=== PATIENT | male | born 1950 | race Caucasian/White ===

== ENCOUNTER → 2018-06-01 11:54 | Outpatient (CLI) | payer MEDICARE, OTHER, SELFPAY ==
--- NOTE | 2018-06-01 | DI.US.S_ITS ---
PROCEDURE: US THYROID INDICATIONS: NEOPLASM OF UNCERTAIN BEHAVIOR OF THYROID GLAND TECHNIQUE: Real-time scanning was performed of the thyroid gland, with image documentation. COMPARISON: None. FINDINGS: Right: The right thyroid lobe measures 2.0 x 2.0 x 4.7 cm and contains 2 small nodules, near the origin of the Isthmus. The larger of the 2 measures 1.0 x 1.4 x 1.6 cm and the smaller of the 2 measures 1.0 x 0.6 x 0.7 cm each of these is predominantly solid and isoechoic to the thyroid smoothly marginated and contains no internal calcifications. Left: The left thyroid lobe measures 1.2 x 1.4 x 3.9 cm and contains a small 5 x 6 x 7 mm nodule is predominantly cystic and smoothly marginated. Isthmus: 2 mm. IMPRESSION: 3 hypoechoic structures are seen to involving the mid right thyroid near the origin of the Isthmus and the third is on the left. The third appears to represent a cyst and the 2 on the right represents simple appearing nodules. Dictated by: Maco Burger M.D. on 06/01/2018 at 13:58 Approved by: Maco Burger M.D. on 06/01/2018 at 14:00
== END ==
PROVIDERS: PCP Family Medicine; Visit Provider Otolaryngology
DX: D44.0 Neoplasm of uncertain behavior of thyroid gland (principal)
CPT/HCPCS: 76536

== ENCOUNTER → 2021-01-23 08:00 | Outpatient (CLI) | payer MEDICARE, OTHER, SELFPAY ==
[2021-01-23 19:35] LABS: Cholesterol 207 mg/dL (140-199); HDL Cholesterol 43 mg/dL (40-60); LDL Cholesterol Calculated 127 mg/dL (<100); Triglycerides 185 mg/dL (35-150)
[2021-01-23 20:19] LABS: Prostate Specific Antigen < 0.064 ng/mL (0.10-4.00)
== END ==
PROVIDERS: PCP Family Medicine; Visit Provider Family Medicine
DX: Z85.46 Personal history of malignant neoplasm of prostate (principal); E78.00 Pure hypercholesterolemia, unspecified
CPT/HCPCS: 80061; 84153

== ENCOUNTER → 2021-09-20 09:18 | Outpatient (CLI) | payer MEDICARE, OTHER, SELFPAY ==
[2021-09-20 20:34] LABS: Cholesterol 176 mg/dL (140-199); HDL Cholesterol 38 mg/dL (40-60); LDL Cholesterol Calculated 113 mg/dL (<100); Triglycerides 127 mg/dL (35-150)
== END ==
PROVIDERS: PCP Family Medicine; Visit Provider Family Medicine
DX: E78.00 Pure hypercholesterolemia, unspecified (principal)
CPT/HCPCS: 80061

== ENCOUNTER 2021-12-29 03:42 | Emergency (ER) | payer MEDICARE, OTHER, SELFPAY ==
[2021-12-29] VITALS (18 sets, daily range): BP systolic 138–176; BP diastolic 69–119; PULSE 61–70; RESP 14–20; TEMP 36.8; O2SAT 85–99
--- NOTE | 2021-12-29 03:48 | ED_ITS ---
HPI - General Adult General Chief complaint: Headache Stated complaint: cluster headache, nv Time Seen by Provider: 12/29/21 03:48 History of Present Illness HPI narrative: 71-year-old gentleman presents from [facility] with severe headache. He does have a history of migraine but states he has not actually had a migraine for 3-4 years. In the past triptans have been help. He recently was on an extended scuba diving trip with a mild upper respiratory infection that seemed to reso lve. The headache was initially noted at the end of long international flight and has been waxing and waning over the ensuing days. He denies fevers, cough, chills. He has not had any nasal discharge. He describes the headache is severe stabbing pain through the middle of his forehead not necessarily associated with photophobia. It is different from previous migraines. He does not note any nuchal rigidity. He has been nauseated and has had a moderate amount of vomiting. No abdominal pain constipation or diarrhea. He is not been having chest pain or palpitations. He describes no visual changes and no double vision. He was seen on the [place] in clinic yesterday was given a shot of T oradol, oxycodone and started on Augmentin. The nausea and vomiting has been such that he is not been able to keep the oxycodone or the Augmentin down. Related Data Home Medications Medication Instructions Recorded Confirmed aspirin 81 mg tablet,delayed 81 mg PO DAILY 09/20/21 09/20/21 release (Adult Aspirin Regimen) Previous Rx's Medication Instructions Recorded desmopressin 0.1 mg tablet 0.1 mg PO BID #60 tabs 01/16/21 sumatriptan succinate 100 mg tablet 100 mg PO ONCE #20 tabs 01/16/21 triamcinolone acetonide 0.1 % 1 applic topical BID #80 grams 09/20/21 topical cream amoxicillin 875 mg-potassium 1 tab PO Q12H sinusitis #14 tabs 12/28/21 clavulanate 125 mg tablet fluticasone propionate 50 1 spray intranasal DAILY #16 grams 12/28/21 mcg/actuation nasal spray,suspension (Flonase Allergy Relief) oxycodone 5 mg tablet 5 mg PO Q6H PRN pain #7 tabs 12/28/21 rizatriptan 10 mg tablet See Rx Instructions PO .COMPLEX 12/28/21 #14 tabs amoxicillin 875 mg-potassium 1 tab PO BID #14 tabs 12/29/21 clavulanate 125 mg tablet ondansetron 4 mg disintegrating 4 mg PO Q8H PRN nausea and 12/29/21 tablet vomiting #20 tabs Allergies Allergy/AdvReac Type Severity Reaction Status Date / Time lactose AdvReac Mild DIARRHEA Verified 01/16/21 10:17 (HAS OCCASIONAL DAIRY W/O SYMPTOMS) tomato [TOMATO] AdvReac Mild FRESH Verified 01/16/21 10:17 TOMATOES IRRITATE MOUTH, COOKED ARE O.K. Review of Systems Review of Systems Narrative: Remainder of complete review of systems is otherwise unremarkable except for that included in the HPI. Patient History Medical History Cataracts, bilateral Chicken pox Fractures Hearing loss Measles Mumps Prostate cancer (~2005) Wears glasses Surgical History Anesthesia History of arthroscopic knee surgery (~12/2008) History of arthroscopic knee surgery (~01/2013) History of cholecystectomy (~2014) History of hernia repair History of hernia repair (~06/02/03) History of prostatectomy (~02/2004) Hx of total hip arthroplasty (~01/02/15) Family History Father Cancer Mother History of heart disease Brother No problems noted. Social History Smoking Status: Former smoker Smoking Status: Former smoker Exam Initial Vital Signs Initial Vital Signs: Vital Signs Pulse Rate 65 12/29/21 03:43 Blood Pressure 159/85 H 12/29/21 03:43 Pulse Oximetry 87 L 12/29/21 03:43 General: In moderate distress secondary to pain. Able to give a complete and coherent history. Well-nourished well-developed HEENT: Moist mucous membranes, normal sclera with reactive pupils, tenderness to palpation over frontal sinuses Neck: No JVD, supple, no nuchal rigidity Respiratory: Lungs are clear to auscultation, no wheezing no rales no rhonchi. Full and symmetrical air movement Cardiac: Regular rate and rhythm no murmurs no bruits Abdomen: Soft, nontender, good bowel tones, no flank pain Skin: Warm and dry, no rashes Neurologic: Grossly neurologically intact with no obvious asymmetries or abnormalities Extremities: No trauma, well perfused Psych: Cooperative, appropriate insight and affect Course Orders Ordered: ED Orders 12/29/21 03:46 Respiratory Panel (Film Array) Stat 12/29/21 03:57 CT head/brain wo con Stat 12/29/21 04:32 Complete Blood Count AUTO DIFF Stat Comprehensive Metabolic Panel Stat Amoxicillin/Clavulanate Potassium (Amoxicillin/Clav 875/125 Mg) 1 tab PO NOW ONE Stop: 12/29/21 06:52 Discontinued Medications Dexamethasone (Dexamethasone 10 Mg/Ml Vial) 10 mg IV NOW ONE Stop: 12/29/21 03:56 Last Admin: 12/29/21 04:15 Dose: 10 mg Documented By: GUICHO Diphenhydramine HCl (Diphenhydramine 50 Mg/Ml Vial) 25 mg IV NOW ONE Stop: 12/29/21 03:56 Last Admin: 12/29/21 04:15 Dose: 25 mg Documented By: GUICHO Sodium Chloride (Normal Saline 0.9%) 1,000 mls @ 1,000 mls/hr IV BOLUS ONE Stop: 12/29/21 04:54 Last Admin: 12/29/21 04:14 Dose: 1,000 mls/hr Documented By: GUICHO Ketorolac Tromethamine (Ketorolac 30 Mg/Ml Vial) 15 mg IV NOW ONE Stop: 12/29/21 03:56 Last Admin: 12/29/21 04:14 Dose: 15 mg Documented By: GUICHO Metoclopramide HCl (Metoclopramide 10 Mg/2 Ml Inj) 10 mg IV NOW ONE Stop: 12/29/21 03:56 Last Admin: 12/29/21 04:15 Dose: 10 mg Documented By: GUICHO Vital Signs Vital signs: Vital Signs - 8 hr 12/29/21 03:46 12/29/21 03:43 12/29/21 03:43 Temperature 98.2 F Pulse Rate 65 65 Respiratory Rate 16 Blood Pressure 159/85 H 159/85 H Pulse Oximetry 99 87 L Oxygen Delivery Method Room Air 12/29/21 04:00 12/29/21 04:00 12/29/21 04:22 Temperature Pulse Rate 66 67 Respiratory Rate 16 16 Blood Pressure 159/79 H Pulse Oximetry 96 95 Oxygen Delivery Method 12/29/21 04:22 12/29/21 05:41 Temperature Pulse Rate 65 Respiratory Rate 14 Blood Pressure 176/81 H 138/69 Pulse Oximetry 98 Oxygen Delivery Method Room Air Medical Decision Making Lab Data Result diagrams: 12/29/21 04:32 12/29/21 04:32 Labs: Lab Results 12/29/21 12/29/21 Range/Units 04:32 04:32 WBC 16.9 H (4.5-11.0) X10^3/uL RBC 5.39 (4.5-5.9) X10^6/uL Hgb 15.2 (13.5-17.5) g/dL Hct 46.6 (41-53) % MCV 86.5 (80-100) fL MCH 28.1 (26-34) PG MCHC 32.6 (30-36) % RDW 14.6 (11.6-14.8) % Plt Count 394 (150-400) X10^3/uL Neut % (Auto) 91.1 H (50-75) % Lymph % (Auto) 3.9 L (25-40) % Falls % (Auto) 4.8 (3-14) % Eos % (Auto) 0.0 L (2-4) % Baso % (Auto) 0.2 (0-2) % Neut # (Auto) 52548 H (1308-4985) /uL Lymph # (Auto) 700 L (5920-1046) /uL Falls # (Auto) 800 (0-900) /uL Eos # (Auto) 0 (0-450) /uL Baso # (Auto) 0 (0-100) /uL Sodium 139 (137-145) mmol/L Potassium 4.3 (3.4-5.1) mmol/L Chloride 102 (98-107) mmol/L Carbon Dioxide 25 (22-32) mmol/L BUN 18 (9-20) mg/dL Creatinine 0.81 (0.66-1.25) mg/dL Estimated GFR > 60 (>60) mL/min BUN/Creatinine Ratio 22.2 H (6-22) Glucose 162 H (80-110) mg/dL Calcium 8.8 (8.4-10.2) mg/dL Total Bilirubin 0.5 (0.2-1.3) mg/dL AST 22 (17-59) IU/L ALT 17 (<50) IU/L Alkaline Phosphatase 86 (38-126) U/L Total Protein 8.0 (6.3-8.2) g/dL Albumin 4.3 (3.5-5.0) g/dL Globulin 3.7 (1.7-4.1) g/dL Albumin/Globulin Ratio 1.2 (1.0-2.8) MDM Narrative Medical decision making narrative: 71-year-old gentleman with increasing headaches and frontal sinus pain for the last well over a week. He is a distant history of migraine but has not had any recent migraine. Pain has gotten progressively worse to the point it is the worst headache of his life and he comes over for further evaluation. Labs suggest infection with mild leukocytosis and CT scan shows acute bacterial ethmoid and left frontal sinusitis. No acute infarcts or hemorrhage. He was treated with fluids, steroid, Toradol, IV Reglan and IV Benadryl and pain has been significantly improved to the point he was actually able to sleep. Nausea is currently control and he feels like he could take an antibiotic. Was seen by a primary care provider yesterday and diagnosed with sinusitis and started on Augmentin. Was only given 7 days. I believe Augmentin is an excellent choice but will recommend 14 days of treatment for his clinically diagnosed and CT verified acute bacterial sinusitis. There is no evidence of meningitis, sepsis, intracranial hemorrhage or stroke at this time. Additional Information: MIPS sinusitis The patient has acute bacerial sinusitis with symptom onset greater than 7 days ago, worst headache of his life and CT documented ethmoid and frontal sinusitis. That combined with acute leukocytosis indicates appropriate need for antibiotics. Patient was prescribed an amoxicillin-based antibiotic. Will have him continue with Augmentin as prescribed yesterday Discharge Plan Departure Patient Disposition: Home Clinical Impression: Acute bacterial sinusitis Headache Qualifiers: Headache type: unspecified Headache chronicity pattern: acute headache Instructions: DI for Sinus Headache Activity Restrictions/Additional Instructions: Thank you for coming in today. There are easier ways to meet than in the emergency department ;) You have acute bacterial sinusitis of both the frontal sinuses as well as the ethmoid sinuses. This is what is causing your severe headache. In the emergency department you are given fluids, steroids, Toradol, Reglan and Benadryl was significant relief of your pain. Yesterday you were prescribed Augmentin and this is an excellent initial choice. I want to continue this however I would recommend 14 days rather than the initial 7 prescribed. I have given you an extra 7 days of Augmentin. Sinusitis is difficult to treat and I encourage you to complete the entire course. If you are willing to consider nasal saline washes, these can be very effective in helping with pain and rinsing out the bacteria and debris in your sinuses Using 400 mg of ibuprofen (2 [id number] pills) and 1 Tylenol every 6 hours can be very helpful in controlling pain. To this you can add Sudafed to help encourage the sinus drainage. I would also encourage you to continue using your allergy medications Prescriptions were transmitted to [facility] on [address] If you find that your headache is returning, you have a worsening fever your having stiff neck pain in her back or symptoms that might suggest developing meningitis, you do need to return to the emergency department If you find that you are getting worse or develop any new symptoms, please feel free to return to the emergency department for further evaluation. Prescriptions: New amoxicillin-pot clavulanate 875-125 mg tablet 1 tab PO BID Qty: 14 0RF ondansetron 4 mg tablet,disintegrating 4 mg PO Q8H PRN (Reason: nausea and vomiting) Qty: 20 0RF No Action desmopressin 0.1 mg tablet 0.1 mg PO BID Qty: 60 3RF sumatriptan succinate 100 mg tablet 100 mg PO ONCE Qty: 20 3RF amoxicillin-pot clavulanate 875-125 mg tablet 1 tab PO Q12H Qty: 14 0RF oxycodone 5 mg tablet 5 mg PO Q6H PRN (Reason: pain) Qty: 7 0RF fluticasone propionate [Flonase Allergy Relief] 50 mcg/actuation spray, suspension 1 spray intranasal DAILY Qty: 16 0RF Rx Instructions: administer into each nostril rizatriptan 10 mg tablet See Rx Instructions PO .COMPLEX Qty: 14 0RF Rx Instructions: take 1 tab at onset of headache; if no relief may repeat q2h x 2; max = 3 tabs/24 hr PO aspirin [Adult Aspirin Regimen] 81 mg tablet,delayed release (DR/EC) 81 mg PO DAILY triamcinolone acetonide 0.1 % cream 1 applic topical BID Qty: 80 2RF Referrals: Adia Pulido PA-C [Primary Care Provider] -
--- NOTE | 2021-12-29 03:57 | DI.CT.S_ITS ---
PROCEDURE: CT HEAD/BRAIN WO CON INDICATIONS: severe headache TECHNIQUE: Noncontrast 4.5 mm thick angled axial sections acquired from the foramen magnum to the vertex, with coronal and sagittal reformats. For radiation dose reduction, the following was used: automated exposure control, adjustment of mA and/or kV according to patient size. COMPARISON: None. FINDINGS: Image quality: Excellent. CSF spaces: Basal cisterns are patent. No extra-axial fluid collections. Ventricles are normal in size and shape. Brain: No midline shift. No intracranial masses or hemorrhage. Ferris-white matter interface is normal. Skull and face: Calvarium and visualized facial bones are intact, without suspicious lesions. Sinuses: Visualized sinuses and mastoids are clear. IMPRESSION: Unremarkable CT of the brain Note: Final report is concordant with preliminary interpretation by [facility] Approved by: Jonathan Bergman M.D. on 12/29/2021 at 6:24
[2021-12-29] MEDS: KETOROLAC 30 MG/ML VIAL 15 MG IV (04:14)
[2021-12-29] MEDS: SODIUM CHLORIDE 0.9% 1,000 ML 1000 ML IV (04:14)
[2021-12-29] MEDS: DEXAMETHASONE 10 MG/ML VIAL IV (04:15)
[2021-12-29] MEDS: diphenhydrAMINE 50 MG/ML VIAL 25 MG IV (04:15)
[2021-12-29] MEDS: METOCLOPRAMIDE 10 MG/2 ML INJ IV (04:15)
[2021-12-29 04:43] LABS: Add Manual Diff / Slide Review NO; Basophils Absolute Auto 0 /uL (0-100); Basophils Percent Auto 0.2 % (0-2); Eosinophils Absolute Auto 0 /uL (0-450); Hematocrit 46.6 % (41-53); Hemoglobin 15.2 g/dL (13.5-17.5); Lymphocytes Absolute Auto 700 /uL (1100-4500); Lymphocytes Percent Auto 3.9 % (25-40); Mean Corpuscular HGB Conc 32.6 % (30-36); Mean Corpuscular Hemoglobin 28.1 PG (26-34); Mean Corpuscular Volume 86.5 fL (80-100); Monocytes Absolute Auto 800 /uL (0-900); Monocytes Percent Auto 4.8 % (3-14); Neutrophils Absolute Auto 15400 /uL (1500-7000); Neutrophils Percent Auto 91.1 % (50-75); Platelet Count 394 X10^3/uL (150-400); Red Blood Cell Count 5.39 X10^6/uL (4.5-5.9); Red Cell Distribution Width 14.6 % (11.6-14.8); White Blood Cell Count 16.9 X10^3/uL (4.5-11.0)
[2021-12-29 04:50] LABS: Alanine Aminotransferase 17 IU/L (<50); Albumin 4.3 g/dL (3.5-5.0); Albumin Globulin Ratio 1.2 (1.0-2.8); Alkaline Phosphatase 86 U/L (38-126); Aspartate Aminotransferase 22 IU/L (17-59); BUN Creatinine Ratio 22.2 (6-22); Bilirubin Total 0.5 mg/dL (0.2-1.3); Blood Urea Nitrogen 18 mg/dL (9-20); Calcium 8.8 mg/dL (8.4-10.2); Carbon Dioxide 25 mmol/L (22-32); Chloride 102 mmol/L (98-107); Estimated Glomerular Filt Rate > 60 mL/min (>60); Globulin 3.7 g/dL (1.7-4.1); Glucose 162 mg/dL (80-110); HEMOLYSIS 28 (0-50); Potassium 4.3 mmol/L (3.4-5.1); Sodium 139 mmol/L (137-145)
[2021-12-29] MEDS: AMOXICILLIN/CLAV 875/125 MG 1 TAB PO (07:03)
[2021-12-29 07:43] LABS: Adenovirus Not Detected (Not Detect); B. parapertussis Not Detected (Not Detecte); Bordetella pertussis Not Detected (Not Detecte); Chlamydophila pneumoniae Not Detected (Not Detect); Coronavirus 229E Not Detected (Not Detect); Coronavirus HKU1 Not Detected (Not Detect); Coronavirus NL 63 Not Detected (Not Detect); Coronavirus OC43 Not Detected (Not Detect); Human Metapneumovirus Not Detected (Not Detect); Human Rhinovirus/Enterovirus Not Detected (Not Detect); Influenza A Not Detected (Not Detect); Influenza B Not Detected (Not Detect); Mycoplasma pneumoniae Not Detected (Not Detect); Parainfluenza Virus 1 Not Detected (Not Detect); Parainfluenza Virus 2 Not Detected (Not Detect); Parainfluenza Virus 3 Not Detected (Not Detect); Parainfluenza Virus 4 Not Detected (Not Detect); Respiratory Syncytial Virus Not Detected (Not Detect); SARS- CoV-2 Not Detected (Not Detecte)
[2021-12-29] MEDS: MORPHINE 4 MG/ML INJ IV (08:05)
== END 2021-12-29 09:42 | disposition home or self-care (01) ==
PROVIDERS: Emergency Provider Emergency Medicine; PCP Physician Assistant
DX: J01.90 Acute sinusitis, unspecified (principal); R51.9 Headache, unspecified; R11.2 Nausea with vomiting, unspecified
CPT/HCPCS: 36415; 70450; 80053; 85025; 87633; 96361; 96374; 96375; 99284; J1100; J1200; J1885; J2270; J2765

== ENCOUNTER → 2022-07-30 09:25 | Outpatient (CLI) | payer MEDICARE, OTHER, SELFPAY ==
[2022-07-30 19:09] LABS: Add Manual Diff / Slide Review NO; Basophils Absolute Auto 0 /uL (0-100); Basophils Percent Auto 0.5 % (0-2); Eosinophils Absolute Auto 200 /uL (0-450); Eosinophils Percent Auto 3.8 % (2-4); Hematocrit 42.4 % (41-53); Hemoglobin 13.5 g/dL (13.5-17.5); Lymphocytes Absolute Auto 1600 /uL (1100-4500); Lymphocytes Percent Auto 24.7 % (25-40); Mean Corpuscular HGB Conc 31.8 % (30-36); Mean Corpuscular Hemoglobin 25.6 PG (26-34); Mean Corpuscular Volume 80.5 fL (80-100); Monocytes Absolute Auto 700 /uL (0-900); Monocytes Percent Auto 10.5 % (3-14); Neutrophils Absolute Auto 4000 /uL (1500-7000); Neutrophils Percent Auto 60.5 % (50-75); Platelet Count 284 X10^3/uL (150-400); Red Blood Cell Count 5.27 X10^6/uL (4.5-5.9); Red Cell Distribution Width 16.2 % (11.6-14.8); White Blood Cell Count 6.6 X10^3/uL (4.5-11.0)
[2022-07-30 19:28] LABS: Alanine Aminotransferase 12 IU/L (<50); Albumin 4.1 g/dL (3.5-5.0); Albumin Globulin Ratio 1.5 (1.0-2.8); Alkaline Phosphatase 79 U/L (38-126); Aspartate Aminotransferase 23 IU/L (17-59); Bilirubin Total 0.4 mg/dL (0.2-1.3); Blood Urea Nitrogen 27 mg/dL (9-20); Calcium 9.1 mg/dL (8.4-10.2); Carbon Dioxide 31 mmol/L (22-32); Chloride 104 mmol/L (98-107); Cholesterol 211 mg/dL (140-199); Estimated Glomerular Filt Rate > 60 mL/min (>60); Globulin 2.7 g/dL (1.7-4.1); Glucose 94 mg/dL (80-110); HDL Cholesterol 43 mg/dL (40-60); HEMOLYSIS 15 (0-50); LDL Cholesterol Calculated 140 mg/dL (<100); Potassium 4.5 mmol/L (3.4-5.1); Sodium 140 mmol/L (137-145); Total Protein 6.8 g/dL (6.3-8.2); Triglycerides 142 mg/dL (35-150)
[2022-07-30 19:45] LABS: TSH w/ Reflex to FT4 2.29 uIU/mL (0.47-4.68)
[2022-07-30 19:52] LABS: Prostate Specific Antigen < 0.064 ng/mL (0.10-4.00)
== END ==
PROVIDERS: PCP Physician Assistant; Visit Provider Family Medicine
DX: E78.2 Mixed hyperlipidemia (principal); Z85.46 Personal history of malignant neoplasm of prostate; I10 Essential (primary) hypertension; C61 Malignant neoplasm of prostate
CPT/HCPCS: 80053; 80061; 84153; 84443; 85025

== ENCOUNTER 2022-10-15 09:17 | Day surgery (SDC) | payer MEDICARE, OTHER, SELFPAY ==
[2022-10-15] MEDS: LACTATED RINGERS 1,000 ML 200 ML IV (09:39)
[2022-10-15 09:46] VITALS: BP 144/73; PULSE 63; RESP 18; TEMP 36.2; O2SAT 99; BMI 26.4
--- NOTE | 2022-10-15 10:09 | PM.HP.1 ---
History of Present Illness History of Present Illness Date Patient Seen: 10/15/22 Chief complaint: Dx Colonoscopy Narrative: 72-year-old man here for screening colonoscopy. Last colonoscopy 10 years ago normal. No family history of intestinal malignancy. No abdominal concerns today including pain, unintentional weight loss blood per rectum change in bowel function. [facility] Medical History Cataracts, bilateral Chicken pox Fractures Hearing loss Measles Mumps Prostate cancer (~2005) Wears glasses Surgical History Anesthesia History of arthroscopic knee surgery (~12/2008) History of arthroscopic knee surgery (~01/2013) History of cholecystectomy (~2014) History of hernia repair History of hernia repair (~06/02/03) History of prostatectomy (~02/2004) Hx of total hip arthroplasty (~01/02/15) Family History Father Cancer Mother History of heart disease Brother No problems noted. 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 [facility] 08/2022 Meds Home Medications and Allergies Home Medications Medication Instructions Recorded Confirmed Type desmopressin 0.1 mg tablet 0.1 mg PO BID #60 tabs 01/16/21 10/15/22 Rx sumatriptan succinate 100 mg tablet 100 mg PO ONCE #20 tabs 01/16/21 10/15/22 Rx aspirin 81 mg tablet,delayed 81 mg PO DAILY 09/20/21 10/15/22 History release (Adult Aspirin Regimen) triamcinolone acetonide 0.1 % 1 applic topical BID #80 grams 09/20/21 10/15/22 Rx topical cream sodium,potassium,mag sulfates 17.5 See Rx Instructions PO .COMPLEX 08/29/22 10/15/22 Rx gram-3.13 gram-1.6 gram oral soln #354 mL (Suprep Bowel Prep Kit) lisinopril 5 mg tablet 5 mg PO DAILY #30 tabs 09/15/22 10/15/22 Rx Allergies Allergy/AdvReac Type Severity Reaction Status Date / Time lactose AdvReac Mild DIARRHEA Verified 10/15/22 09:38 (HAS OCCASIONAL DAIRY W/O SYMPTOMS) tomato [TOMATO] AdvReac Mild FRESH Verified 10/15/22 09:38 TOMATOES IRRITATE MOUTH, COOKED ARE O.K. Exam Vital Signs (past 8 hours): - 10/15/22 09:46 Temperature 97.2 F L Pulse Rate 63 Respiratory Rate 18 Blood Pressure 144/73 H Pulse Oximetry 99 Oxygen Delivery Method Room Air Oxygen Delivery Method Room Air Narrative Exam Narrative: General adult man alert oriented no acute distress Abdomen soft nontender nondistended Assessment & Plan Assessment & Plan narrative: The patient requires colorectal screening and colonoscopy is recommended. Technical details were discussed. Risks, benefits, alternatives explained. Risks including but not limited to myocardial infarction, aspiration, bleeding, pain, missed lesion, incomplete examination, need for further radiographic studies, colonic perforation, and need for major abdominal surgery were discussed. All questions were answered to their satisfaction, and they are in agreement with this plan.
--- NOTE | 2022-10-15 10:10 | PM.OP.COLON ---
Operative Date/Time/Diagnoses Date of procedure: 10/15/22 Time of procedure: 10:47 Pre-op diagnosis: Colorectal screening Post-op diagnosis: same Procedure & Clinicians Study performed: Colonoscopy Same procedure as scheduled: Yes Indications: Colorectal screening Surgeon: Davian Guerrero Procedure Notes Procedure in detail: The history and physical was performed/updated and the patient is ASA class is 2. The procedure was discussed in detail with the patient. Potential risks complications including infection, bleeding, missed diagnosis, perforation, need for surgery, and were explained. Their questions were answered and informed consent was obtained. Patient was brought to the procedure room and placed standard monitoring equipment. The patient's vital signs were monitored continuously throughout the entire procedure. Prior to starting time-out was performed. The patient was placed in the left lateral recumbent position. Procedural sedation was administered by anesthesia. Examination began with a thorough inspection of the perianal area there was no evidence of fissures, fistulae, external hemorrhoids or cutaneous malignancy. The colonoscopy scope was then placed into the anal canal and was advanced to the cecum, which was identified by the ileocecal valve, the appendiceal orifice and the confluence of the taenia. The scope was then slowly withdrawn examining colon thoroughly in all directions, irrigating it of any residual stool. No masses polyps or inflammation. Normal healthy colon. Grade 1 internal hemorrhoids The patient tolerated the procedure well. They will be discharged once criteria are met. The prep was of good/excellent quality. The withdrawl time was * minutes. Specimen(s): none sent Impression: Normal colonoscopy Post-procedure Plan for aftercare: No further colonoscopy necessary unless symptomatic Disposition: same day surgery
[2022-10-15 10:42] VITALS: BP 109/61; PULSE 91; RESP 21; TEMP 36.9; O2SAT 96
[2022-10-15 10:45] VITALS: BP 114/77; PULSE 79; RESP 20; TEMP 36.7; O2SAT 99
[2022-10-15 10:50] VITALS: BP 123/71; PULSE 71; RESP 20; TEMP 36.7; O2SAT 99
[2022-10-15 11:00] VITALS: BP 121/70; PULSE 70; RESP 20; TEMP 36.7; O2SAT 99
== END 2022-10-15 11:05 | disposition home or self-care (01) ==
PROVIDERS: PCP Family Medicine; Referring Provider Surgery; Visit Provider Surgery
PROC: 0DJD8ZZ Inspection of Lower Intestinal Tract, Via Natural or Artificial Opening Endoscopic (ICD-10-PCS; CPT 45378; principal; 2022-10-15 10:30)
DX: Z12.11 Encounter for screening for malignant neoplasm of colon (principal); K64.0 First degree hemorrhoids
CPT/HCPCS: G0121; J2704

== ENCOUNTER → 2022-12-06 07:49 | Outpatient (CLI) | payer MEDICARE, OTHER, SELFPAY ==
--- NOTE | 2022-12-06 07:51 | DI.NM.S_ITS ---
PROCEDURE: NM EXERCISE TREADMILL NON NUC COMPARISON: None. 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 Appropriate BP response to exercise (resting BP 120/80mmHg, max BP 162/100mmHg). Excellent exercise capacity (GRETEL -51%). Frequent PVCs present during exercise and recovery. No ST changes and no angina during the study. IMPRESSION: Low risk, normal treadmill ECG only stress test from inducible ischemia standpoint. Frequent PVCs during exercise and recovery. Excellent exercise tolerance (GRETEL -51%). Dictated by: Declan Maher MD on 12/06/2022 at 16:55 Approved by: Declan Maher MD on 12/06/2022 at 16:58
== END ==
PROVIDERS: PCP Family Medicine; Referring Provider Family Medicine; Visit Provider Family Medicine
DX: E78.2 Mixed hyperlipidemia (principal); I10 Essential (primary) hypertension; Z91.89 Other specified personal risk factors, not elsewhere classified
CPT/HCPCS: 93017

== ENCOUNTER → 2023-06-17 09:05 | Outpatient (CLI) | payer MEDICARE, OTHER, SELFPAY ==
[2023-06-17 20:27] LABS: Add Manual Diff / Slide Review NO; Basophils Absolute Auto 0 /uL (0-100); Basophils Percent Auto 0.4 % (0-2); Eosinophils Absolute Auto 100 /uL (0-450); Hematocrit 49.1 % (41-53); Hemoglobin 16.2 g/dL (13.5-17.5); Lymphocytes Absolute Auto 1100 /uL (1100-4500); Lymphocytes Percent Auto 26.3 % (25-40); Mean Corpuscular HGB Conc 32.9 % (30-36); Mean Corpuscular Hemoglobin 30.5 PG (26-34); Mean Corpuscular Volume 92.8 fL (80-100); Monocytes Absolute Auto 800 /uL (0-900); Monocytes Percent Auto 17.7 % (3-14); Neutrophils Absolute Auto 2300 /uL (1500-7000); Neutrophils Percent Auto 52.6 % (50-75); Platelet Count 231 X10^3/uL (150-400); Red Cell Distribution Width 15.3 % (11.6-14.8); White Blood Cell Count 4.3 X10^3/uL (4.5-11.0)
[2023-06-17 20:35] LABS: Alanine Aminotransferase 11 IU/L (<50); Albumin 4.2 g/dL (3.5-5.0); Albumin Globulin Ratio 1.8 (1.0-2.8); Alkaline Phosphatase 62 U/L (38-126); Aspartate Aminotransferase 27 IU/L (17-59); BUN Creatinine Ratio 29.2 (6-22); Bilirubin Total 0.8 mg/dL (0.2-1.3); Blood Urea Nitrogen 28 mg/dL (9-20); Calcium 9.3 mg/dL (8.4-10.2); Carbon Dioxide 26 mmol/L (22-32); Chloride 110 mmol/L (98-107); Cholesterol 184 mg/dL (140-199); Estimated Glomerular Filt Rate > 60 mL/min (>60); Globulin 2.4 g/dL (1.7-4.1); Glucose 95 mg/dL (80-110); HDL Cholesterol 42 mg/dL (40-60); HEMOLYSIS 27 (0-50); LDL Cholesterol Calculated 121 mg/dL (<100); Potassium 4.4 mmol/L (3.4-5.1); Sodium 140 mmol/L (137-145); Total Protein 6.6 g/dL (6.3-8.2); Triglycerides 103 mg/dL (35-150)
[2023-06-17 21:02] LABS: TSH w/ Reflex to FT4 1.33 uIU/mL (0.47-4.68)
[2023-06-17 21:06] LABS: Prostate Specific Antigen < 0.064 ng/mL (0.10-4.00)
== END ==
PROVIDERS: PCP Family Medicine; Visit Provider Family Medicine
DX: I10 Essential (primary) hypertension (principal); C61 Malignant neoplasm of prostate; E78.2 Mixed hyperlipidemia
CPT/HCPCS: 80053; 80061; 84153; 84443; 85025

== ENCOUNTER → 2024-11-03 08:59 | Outpatient (CLI) | payer MEDICARE, OTHER, SELFPAY ==
[2024-11-03 19:21] LABS: Add Manual Diff / Slide Review NO; Hematocrit 48.7 % (41-53); Hemoglobin 16.5 g/dL (13.5-17.5); Lymphocytes Absolute Auto 1300 /uL (1100-4500); Mean Corpuscular HGB Conc 33.9 % (30-36); Mean Corpuscular Hemoglobin 31.7 PG (26-34); Mean Corpuscular Volume 93.6 fL (80-100); Platelet Count 280 X10^3/uL (150-400)
[2024-11-03 19:34] LABS: Alanine Aminotransferase 8 IU/L (<50); Albumin 4.5 g/dL (3.5-5.0); Albumin Globulin Ratio 1.8 (1.0-2.8); Alkaline Phosphatase 64 U/L (38-126); Blood Urea Nitrogen 24 mg/dL (9-20); Calcium 9.5 mg/dL (8.4-10.2); Carbon Dioxide 28 mmol/L (22-32); Chloride 104 mmol/L (98-107); Cholesterol 183 mg/dL (140-199); Estimated Glomerular Filt Rate > 60 mL/min (>60); Globulin 2.5 g/dL (1.7-4.1); Glucose 93 mg/dL (70-99); HDL Cholesterol 49 mg/dL (40-60); HEMOLYSIS < 15 (0-50); Potassium 4.7 mmol/L (3.4-5.1); Sodium 139 mmol/L (137-145); Total Protein 7.0 g/dL (6.3-8.2); Triglycerides 109 mg/dL (35-150)
[2024-11-03 19:59] LABS: Thyroid Stimulating Hormone 1.58 uIU/mL (0.47-4.68)
== END ==
PROVIDERS: PCP Family Medicine; Visit Provider Family Medicine
DX: Z85.46 Personal history of malignant neoplasm of prostate (principal); Z12.5 Encounter for screening for malignant neoplasm of prostate; I10 Essential (primary) hypertension; E78.2 Mixed hyperlipidemia; C61 Malignant neoplasm of prostate
CPT/HCPCS: 80053; 80061; 84443; 85025; G0103